=== PATIENT | male | born 1970 | race Hispanic/Latino ===

== ENCOUNTER 2017-05-30 10:28 | Emergency (ER) | payer OTHER ==
[~2017-05-30] VITALS: Ht 170.2 cm; Wt 83.9 kg
--- NOTE | 2017-05-30 11:16 | Diagnostic Imaging Report ---
Ankle complete CPT CODE: 62040 HISTORY: Heel injury, toe tingling. TECHNIQUE: Three views right ankle obtained COMPARISON: None. FINDINGS: The distal tibia and fibula appear intact. Ankle mortise remains symmetric. No soft tissue swelling. The calcaneus appears intact. The visualized portions of the midfoot and forefoot are intact. There are no degenerative changes. IMPRESSION: No evidence of acute fracture or dislocation involving the ankle. Signed by: Dr. Feroz Olvera MD on 05/30/2017 11:13 AM
--- NOTE | 2017-05-30 11:20 | Diagnostic Imaging Report ---
Foot complete CPT code: 15642 Indication: Healing injury, toe tingling Technique: A.P., oblique and lateral views of the right foot obtained. Comparison: Ankle x-rays obtained at the same time Findings: Calcaneus is intact and normal in morphology. The midfoot is intact. No evidence of displaced fracture or dislocation involving any of the digits. No degenerative changes. No radiopaque foreign bodies in the soft tissues. IMPRESSION: No no fracture or dislocation. No osseous abnormality to explain symptoms. Signed by: Dr. Feroz Olvera MD on 05/30/2017 11:16 AM
== END 2017-05-30 13:49 | disposition home or self-care (01) ==
LOC: ER 10:28
DX: S90.01XA Contusion of right ankle, initial encounter (principal); S90.511A Abrasion, right ankle, initial encounter; W22.09XA Striking against other stationary object, initial encounter; Y99.0 Civilian activity done for income or pay
CPT/HCPCS: 99283